=== PATIENT | female | born 1955 | race Caucasian/White ===

== ENCOUNTER 2017-03-17 11:40 | Outpatient (CLI) | payer OTHER | END 2017-03-17 11:41 | disposition home or self-care (01) | LOC: BICRAD 11:40 | PROVIDERS: ATTEND Family Medicine | DX: R04.2 Hemoptysis (principal); Z95.810 Presence of automatic (implantable) cardiac defibrillator | CPT/HCPCS: 71046 ==

== ENCOUNTER 2017-03-30 14:31 | Outpatient (CLI) | payer OTHER | END 2017-03-30 14:32 | disposition home or self-care (01) | LOC: BICMAMMO 14:31 | PROVIDERS: ATTEND Family Medicine | DX: Z12.31 Encounter for screening mammogram for malignant neoplasm of breast (principal) | CPT/HCPCS: 77067 ==

== ENCOUNTER 2017-04-23 10:08 | Day surgery (SDC) | payer OTHER ==
[2017-04-22 14:17] VITALS: BMI 42.2
--- NOTE | 2017-04-23 14:04 | OP ---
DATE OF PROCEDURE: 04/23/2017 PROCEDURE: Esophagogastroduodenoscopy with esophageal dilation and biopsy. PREOPERATIVE DIAGNOSES: 1. Dysphagia. 2. Atypical chest pain. 3. Reflux symptoms despite therapy. POSTOPERATIVE DIAGNOSES: 1. Examination to second portion of duodenum. 2. Grossly normal esophagus with no evidence of stenosis or stricture. 3. Status post [address] [place] dilation of the esophagus. 4. Mild body gastritis, biopsied. 5. Normal duodenum. PROCEDURE IN DETAIL: Written informed consent was obtained. The patient was brought to the endoscop y suite. Total intravenous anesthesia was provided by Bess Hoffman CRNA. The patient was place d in left lateral decubitus position. A bite block was inserted into the mouth. A Pentax video ther apeutic gastroscope was introduced into the oral cavity and the esophagus was carefully intubated. T he gastroscope was advanced under direct visualization to the second portion of the duodenum. Endosc opic findings revealed a grossly normal esophagus with grossly normal motility. No evidence of steno sis or stricture. The stomach demonstrated mucosal changes consistent with mild body gastritis. Muc osal changes included mild erythema, mild edema, and scattered subepithelial petechiae. No ulcer was seen. Biopsies were obtained for histology. The duodenum from the bulb to the second portion appea red normal. Retroflexed view of the proximal stomach was normal. Due to the patient's history of dy sphagia for solid foods, a 54[place] dilator was passed across the entire esophagus without r esistance. The endoscope was reintroduced after the dilation to evaluate the esophagus and take biop sies. Biopsies were obtained in the mid esophagus at 30-35 cm. There was no evidence of bleeding, t ear or perforation post-Hawk dilation. The stomach was then decompressed as the endoscope was rem meet from the patient. She was transferred to the day stay surgery area for post-procedure monitorin g. There were no immediate complications. RECOMMENDATIONS: 1. Await biopsy results. 2. Ask the patient to call me in 1 week for biopsy results. 3. Continue Dexilant 60 mg daily. 4. Add sucralfate 1 gram p.o. t.i.d. p.r.n. bitter taste in the mouth or indigestion. 5. Follow up in GI Clinic in 5-6 weeks.
[2017-04-23] MEDS ORDERED: Propofol 200 MG/20 ML VIAL ONE (15:28)
[2017-04-23] MEDS ORDERED: Lidocaine 1% PF 5 ML VIAL ONE (15:28)
== END 2017-04-23 15:10 | disposition home or self-care (01) ==
LOC: SDC 10:08
PROVIDERS: ATTEND Internal Medicine Gastroenterology
PROC: 0D758ZZ Dilation of Esophagus, Via Natural or Artificial Opening Endoscopic (ICD-10-PCS; principal; 2017-04-23)
PROC: 0DB68ZX Excision of Stomach, Via Natural or Artificial Opening Endoscopic, Diagnostic (ICD-10-PCS; principal; 2017-04-23)
PROC: 0DB58ZX Excision of Esophagus, Via Natural or Artificial Opening Endoscopic, Diagnostic (ICD-10-PCS; principal; 2017-04-23)
DX: K29.50 Unspecified chronic gastritis without bleeding (principal); K21.0 Gastro-esophageal reflux disease with esophagitis; R07.89 Other chest pain; I11.0 Hypertensive heart disease with heart failure; I50.9 Heart failure, unspecified; E11.9 Type 2 diabetes mellitus without complications; M19.90 Unspecified osteoarthritis, unspecified site; Z88.1 Allergy status to other antibiotic agents; Z79.82 Long term (current) use of aspirin; Z79.84 Long term (current) use of oral hypoglycemic drugs; Z79.899 Other long term (current) drug therapy; Z90.49 Acquired absence of other specified parts of digestive tract; Z90.710 Acquired absence of both cervix and uterus; Z95.5 Presence of coronary angioplasty implant and graft; Z98.890 Other specified postprocedural states
CPT/HCPCS: 36416; 88305; 88312; 88313; 88342; 93005; 93010; J2001; J2704

== ENCOUNTER 2018-01-01 12:40 | Emergency (ER) | payer OTHER ==
--- NOTE | 2018-01-01 15:10 | RAD ---
3 VIEWS LUMBOSACRAL SPINE: Date: 01/01/18 COMPARISON: 05/01/13. HISTORY: Fall yesterday with low back pain. FINDINGS: Three views of the lumbosacral spine shows normal height and alignment of the vertebral bodies withou t fracture or subluxation. The intervertebral discs are narrowed with small osteophytes throughout th e lumbar spine. No significant change has occurred compared to the prior examination. IMPRESSION: Degenerative changes of the lumbar spine without acute osseous abnormality. POS: [facility]
[2018-01-01] MEDS ORDERED: Adacel (T-DAP) 0.5 ML VIAL ONE (15:23)
--- NOTE | 2018-01-01 16:10 | RAD ---
FOUR VIEWS LEFT ELBOW: Comparison: None. History: Left elbow injury after a fall. FINDINGS: Four views of left elbow shows no evidence of acute fracture or dislocation. No elbow effusion is see n. No degenerative changes are present. IMPRESSION: Unremarkable exam. POS: [facility]
== END 2018-01-01 15:56 | disposition home or self-care (01) ==
LOC: ERS 12:40
DX: S39.012A Strain of muscle, fascia and tendon of lower back, initial encounter (principal); S50.312A Abrasion of left elbow, initial encounter; E11.9 Type 2 diabetes mellitus without complications; I11.0 Hypertensive heart disease with heart failure; I50.9 Heart failure, unspecified; Z79.82 Long term (current) use of aspirin; Z79.899 Other long term (current) drug therapy; Z79.4 Long term (current) use of insulin; W01.0XXA Fall on same level from slipping, tripping and stumbling without subsequent striking against object, initial encounter
CPT/HCPCS: 72100; 90471; 90715

== ENCOUNTER 2018-11-03 09:53 | Outpatient (CLI) | payer OTHER ==
--- NOTE | 2018-11-03 10:31 | MMO ---
Bilateral MAMMO Bilat Screen [facility]. CLINICAL HISTORY: Patient is 63 years old and is seen for screening. The patient has no family history of breast cancer. The patient has no personal history of cancer. VIEWS: The views performed were: bilateral craniocaudal and bilateral mediolateral oblique. FILMS COMPARED: The present examination has been compared to prior imaging studies performed at [facility] on 02/23/2009, 02/28/2010, 09/27/2013 and 02/21/2016. This study has been interpreted with the assistance of computer-aided detection. MAMMOGRAM FINDINGS: The breasts are almost entirely fat. There are no suspicious masses, suspicious calcifications, or new areas of architectural distortion. IMPRESSION: THERE IS NO MAMMOGRAPHIC EVIDENCE OF MALIGNANCY. A ROUTINE FOLLOW-UP MAMMOGRAM IN 1 YEAR IS RECOMMENDED. ACR BI-RADS Category 1 - Negative MAMMOGRAPHY NOTE: 1. A negative mammogram report should not delay a biopsy if a dominant of clinically suspicious mass is present. 2. Approximately 10% to 15% of breast cancers are not detected by mammography. 3. Adenosis and dense breasts may obscure an underlying neoplasm. Reported by: CHRISTIANO MAO MD Electonically Signed: [id number]
== END 2018-11-03 09:54 | disposition home or self-care (01) ==
LOC: BICMAMMO 09:53
PROVIDERS: ATTEND Physician Assistant
DX: Z12.31 Encounter for screening mammogram for malignant neoplasm of breast (principal)
CPT/HCPCS: 77067

== ENCOUNTER 2019-12-12 14:22 | Outpatient (CLI) | payer MEDICARE ==
--- NOTE | 2019-12-12 15:59 | MMO ---
Bilateral MAMMO Bilat Screen [facility]. CLINICAL HISTORY: Patient is 64 years old and is seen for screening. The patient has no family history of breast cancer. The patient has no personal history of cancer. VIEWS: The views performed were: bilateral craniocaudal with tomosynthesis; bilateral mediolateral oblique with tomosynthesis; and left mediolateral oblique. FILMS COMPARED: The present examination has been compared to prior imaging studies performed at [facility] on 02/28/2010, 09/27/2013, 02/21/2016 and 11/03/2018. This study has been interpreted with the assistance of computer-aided detection. MAMMOGRAM FINDINGS: The breasts are almost entirely fat. There are no suspicious masses, suspicious calcifications, or new areas of architectural distortion. IMPRESSION: THERE IS NO MAMMOGRAPHIC EVIDENCE OF MALIGNANCY. A ROUTINE FOLLOW-UP MAMMOGRAM IN 1 YEAR IS RECOMMENDED. THE RESULTS OF THIS EXAM WERE SENT TO THE PATIENT. ACR BI-RADS Category 1 - Negative MAMMOGRAPHY NOTE: 1. A negative mammogram report should not delay a biopsy if a dominant of clinically suspicious mass is present. 2. Approximately 10% to 15% of breast cancers are not detected by mammography. 3. Adenosis and dense breasts may obscure an underlying neoplasm. Reported by: OSRAYA RASHID MD Electonically Signed: [id number]
== END 2019-12-12 14:23 | disposition home or self-care (01) ==
LOC: BICMAMMO 14:22
PROVIDERS: ATTEND Family Medicine
DX: Z12.31 Encounter for screening mammogram for malignant neoplasm of breast (principal)
CPT/HCPCS: 77063; 77067

== ENCOUNTER 2020-07-26 17:21 | Emergency (ER) | payer MEDICARE, OTHER ==
[2020-07-26] MEDS ORDERED: Ondansetron PF 4 MG/2 ML Vial ONE (17:43)
[2020-07-26] MEDS ORDERED: Morphine 4 MG/ML VIAL ONE (17:43)
[2020-07-26] MEDS ORDERED: Ketorolac Tromethamine 30 MG/ML VIAL ONE (17:43)
[2020-07-26] MEDS ORDERED: Propofol 1,000 MG/100 ML VIAL IV ONE (18:29)
[2020-07-26] MEDS ORDERED: PROPOFOL 20 ML ONE (18:29)
[2020-07-26] MEDS ORDERED: Fentanyl 100 MCG/2 ML VIAL ONE (18:31)
[2020-07-26 18:35] LABS: #Eosinphils 0.1 thou/uL (0.0-0.7); #Lymphocytes 2.1 thou/uL (1.20-3.40); #Monocytes 0.5 thou/uL (0.11-0.59); #Neutrophils 4.7 thou/uL (1.40-6.50); %Basophils 0.1 % (0.0-1.0); %Eosinophils 1.3 % (0.0-10.0); %Lymphocytes 28.9 % (21.0-51.0); %Monocytes 6.6 % (0.0-10.0); Hemoglobin 8.8 g/dL (12.0-16.0); Mean Corpuscular HGB CONC 33.3 g/dL (32.0-36.0); Mean Corpuscular Volume 93.2 fL (78.0-98.0); Mean Platelet Volume 6.9 fL (7.4-10.4); Platelet Count 157 thou/uL (130-400); RBC Distribution Width 12.7 % (11.5-14.5); Red Blood Cell (RBC) Count 2.83 mill/uL (4.20-5.40); White Blood Cell (WBC) Count 7.4 thou/uL (4.8-10.8)
[2020-07-26 18:55] LABS: ALT (SGPT) 14 U/L (8-55); AST (SGOT) 17 U/L (5-34); Albumin 2.4 g/dL (3.4-4.8); Alkaline Phosphatase 43 U/L (40-110); Anion Gap 10 mmol/L (10-20); BUN (Urea Nitrogen) 15 mg/dL (9.8-20.1); Bilirubin, Total 0.6 mg/dL (0.2-1.2); Calc. Creatinine Clearance 0 mL/min (70-130); Calcium 6.1 mg/dL (7.8-10.44); Carbon Dioxide 17 mmol/L (23-31); Chloride 118 mmol/L (98-107); Globulin 2.1 g/dL (2.4-3.5); Glucose 91 mg/dL (80-115); Protein, Total 4.5 g/dL (5.8-8.1); Sodium 142 mmol/L (136-145)
[2020-07-26 18:59] LABS: Potassium 2.8 mmol/L (3.5-5.1)
[2020-07-26] MEDS ORDERED: Potassium Chloride 20 MEQ TAB ONE (19:30)
== END 2020-07-26 19:42 | disposition home or self-care (01) ==
LOC: ERS 17:21
DX: S43.005A Unspecified dislocation of left shoulder joint, initial encounter (principal); M54.2 Cervicalgia; D64.9 Anemia, unspecified; E83.51 Hypocalcemia; I50.9 Heart failure, unspecified; E11.9 Type 2 diabetes mellitus without complications; W18.30XA Fall on same level, unspecified, initial encounter
CPT/HCPCS: 23650; 36415; 70450; 71045; 72125; 80053; 85025; 96374; 96375; J1885; J2270; J2405; J2704; J3010

== ENCOUNTER 2021-08-01 13:15 | Outpatient (CLI) | payer MEDICARE, MEDICAID | END 2021-08-01 13:16 | disposition home or self-care (01) | LOC: BICMAMMO 13:15 | PROVIDERS: ATTEND Family Medicine | DX: Z12.31 Encounter for screening mammogram for malignant neoplasm of breast (principal) | CPT/HCPCS: 77063; 77067 ==

== ENCOUNTER 2021-11-16 12:47 | Emergency (ER) | payer OTHER ==
[2021-11-16] MEDS ORDERED: PROVENTIL INHALER 6.7 G (200 INHALATIONS) ONE (15:45)
[2021-11-16] MEDS ORDERED: Albuterol 200 PUFF (6.7GM INHALER) ONE (15:48)
== END 2021-11-16 15:50 | disposition home or self-care (01) ==
LOC: ERS 12:47
DX: B34.9 Viral infection, unspecified (principal); E11.9 Type 2 diabetes mellitus without complications; Z20.822 Contact with and (suspected) exposure to COVID-19; Z79.84 Long term (current) use of oral hypoglycemic drugs
CPT/HCPCS: 87804 ×2; 99283; U0003; U0005

== ENCOUNTER 2023-08-27 13:03 | Outpatient (CLI) | payer OTHER | END 2023-08-27 13:04 | disposition home or self-care (01) | LOC: BICMAMMO 13:03 | PROVIDERS: ATTEND Family Medicine | DX: Z12.31 Encounter for screening mammogram for malignant neoplasm of breast (principal); Z13.820 Encounter for screening for osteoporosis; M85.851 Other specified disorders of bone density and structure, right thigh; M85.852 Other specified disorders of bone density and structure, left thigh; Z78.0 Asymptomatic menopausal state | CPT/HCPCS: 77063; 77067; 77080 ==

== ENCOUNTER 2024-03-11 13:43 | Outpatient (CLI) | payer OTHER, MEDICAID | END 2024-03-11 13:44 | disposition home or self-care (01) | LOC: BICULT 13:43 | PROVIDERS: ATTEND Internal Medicine Nephrology | DX: N18.30 Chronic kidney disease, stage 3 unspecified (principal); N28.9 Disorder of kidney and ureter, unspecified | CPT/HCPCS: 76770 ==

== ENCOUNTER 2024-03-28 10:06 | Outpatient (CLI) | payer OTHER, MEDICAID | END 2024-03-28 10:07 | disposition home or self-care (01) | LOC: BICCT 10:06 | PROVIDERS: ATTEND Internal Medicine Nephrology | DX: N18.30 Chronic kidney disease, stage 3 unspecified (principal); N28.89 Other specified disorders of kidney and ureter | CPT/HCPCS: 74176 ==

== ENCOUNTER 2024-04-08 10:54 | Outpatient (CLI) | payer OTHER, MEDICAID | END 2024-04-08 10:55 | disposition home or self-care (01) | LOC: BICCT 10:54 | PROVIDERS: ATTEND Internal Medicine Nephrology | DX: N28.89 Other specified disorders of kidney and ureter (principal); D73.4 Cyst of spleen; I86.8 Varicose veins of other specified sites; R59.0 Localized enlarged lymph nodes | CPT/HCPCS: 36415; 74178; 82565 ==